=== PATIENT | female | born 1975 | race American Indian/Alaskan Native ===

== ENCOUNTER 2022-07-06 14:04 | Outpatient (CLI) | payer BC ==
--- NOTE | 2022-07-06 15:41 | XRay Report ---
XR shoulder 2+V RT INDICATION / CLINICAL INFORMATION: PAIN IN RIGHT SHOULDER. COMPARISON: None available. FINDINGS: BONES/JOINT(S): No acute fracture or subluxation. No significant degenerative changes. No focal bone erosions or focal osteopenia to suggest inflammatory arthropathy. SOFT TISSUES: No significant abnormality. ADDITIONAL FINDINGS: None. Signer Name: Mino Montiel MD Signed: 07/06/2022 3:36 PM Workstation Name: [email or web address]
--- NOTE | 2022-07-06 15:43 | XRay Report ---
XR spine cervical 2-3V INDICATION / CLINICAL INFORMATION: PAIN IN RIGHT SHOULDER. COMPARISON: None available. FINDINGS: BONES/JOINT(S): No acute fracture or subluxation. Mild degenerative disc disease at C5-6. No focal thierry ne erosions or focal osteopenia to suggest inflammatory arthropathy. SOFT TISSUES: No significant abnormality. ADDITIONAL FINDINGS: None. Signer Name: Mino Montiel MD Signed: 07/06/2022 3:39 PM Workstation Name: [email or web address]
== END 2022-07-06 14:05 | disposition home or self-care (01) ==
LOC: XRAY 14:04
PROVIDERS: ATTEND Orthopaedic Surgery
DX: M47.812 Spondylosis without myelopathy or radiculopathy, cervical region (principal); M25.511 Pain in right shoulder
CPT/HCPCS: 72040